=== PATIENT | male | born 1990 | race Caucasian/White ===

== ENCOUNTER 2024-10-19 08:00 | Emergency (ER) | payer OTHER ==
[~2024-10-19] VITALS: Ht 165.1 cm; Wt 65.8 kg
[2024-10-19 08:06] VITALS: BP 145/66; TEMP 98
[2024-10-19] MEDS ORDERED: ACETAMINOPHEN ES 500 MG TABLET ONE (08:34)
[2024-10-19] MEDS: ACETAMINOPHEN ES 500 MG TABLET PO ONE (08:38)
[2024-10-19 08:50] VITALS: O2SAT 98
== END 2024-10-19 08:51 | disposition home or self-care (01) ==
LOC: ER 08:05
DX: R51.9 Headache, unspecified (principal); Z76.5 Malingerer [conscious simulation]; Z60.2 Problems related to living alone